=== PATIENT | female | born 1955 | race Caucasian/White ===

== ENCOUNTER 2019-03-14 14:22 | Emergency (ER) | payer MEDICAID, OTHER, SELFPAY ==
[~2019-03-14] VITALS: Ht 162.6 cm; Wt 63.6 kg
[~2019-03-14 14:22] MED LIST: ALBU18HF2 INH; ASPI-1265 PO; CARV3.12 PO; COR3.125T PO; EST1T PO; FURO-150 PO; FURO20TA4 PO; GUAI600T45 PO; LACT1CAP26 PO; LEVO500T89 PO; LISI-604 PO; LISI10TA4 PO; METH4TAB81 PO; NIFE30TA95 PO; PHEN100C4 PO; PROG200C11 PO; THY60T PO; UMEC1DIS IH
[2019-03-14 15:13] LABS: BASOPHILS % (AUTO) 0.8 % (0-1); EOSINOPHILS # (AUTO) 0.3 X10'3 (0-0.9); EOSINOPHILS % (AUTO) 4.6 % (0-6); HEMOGLOBIN 15.1 g/dl (12.0-16.0); LYMPHOCYTES # (AUTO) 1.2 X10'3 (1.1-4.8); LYMPHOCYTES % (AUTO) 21.8 % (21-51); MEAN CORPUSCULAR HEMOGLOBIN 31.6 PG (27.0-31.0); MEAN CORPUSCULAR HGB CONC 34.4 g/dL (33.0-36.5); MEAN CORPUSCULAR VOLUME 91.9 FL (78-98); MONOCYTES # (AUTO) 0.6 X10'3 (0-0.9); MONOCYTES % (AUTO) 9.7 % (2-12); NEUTROPHILS # (AUTO) 3.6 X10'3 (1.8-7.7); NEUTROPHILS % (AUTO) 63.1 % (42-75); PLATELET COUNT 235 X10'3 (140-440); RED BLOOD COUNT 4.79 X10'6 (4.20-5.60); RED CELL DISTRIBUTION WIDTH 13.8 % (11.5-14.5); WHITE BLOOD COUNT 5.7 X10'3 (4.5-11.0)
[2019-03-14] MEDS ORDERED: albuterol 2.5 MG/3 ML nebule NEB ONE (15:25)
[2019-03-14] MEDS ORDERED: ipratropium/albuterol 3ml nebule NEB ONE (15:25)
[2019-03-14 15:26] LABS: ALANINE AMINOTRANSFERASE 42 U/L (12-78); ALBUMIN 3.9 G/DL (3.4-5.0); ALKALINE PHOSPHATASE 131 IU/L (46-116); ANION GAP 10 (8-16); ASPARTATE AMINO TRANSFERASE 27 U/L (10-37); BILIRUBIN,TOTAL 0.3 MG/DL (0.1-1.0); BLOOD UREA NITROGEN 11 MG/DL (7-18); BUN/CREATININE RATIO 14.3 (6.6-38.0); CALCIUM 9.3 MG/DL (8.5-10.1); CHLORIDE 104 MMOL/L (99-107); CREATININE 0.77 MG/DL (0.40-0.90); GLUCOSE 118 MG/DL (70-104); POTASSIUM 3.4 MMOL/L (3.5-5.1); SODIUM 140 MMOL/L (135-145); TOTAL CARBON DIOXIDE 25.7 MMOL/L (24-32); TOTAL PROTEIN 7.7 G/DL (6.4-8.2); eGFR 76 ML/MIN
[2019-03-14 15:28] LABS: PARTIAL THROMBOPLASTIN TIME 27 SECONDS (22-32)
[2019-03-14] MEDS ORDERED: predniSONE 20 mg tablet PO ONE (15:50)
[2019-03-14] MEDS ORDERED: PRED20TA PO (15:55)
[2019-03-14] MEDS ORDERED: ALBU18HF2 INH (15:55)
--- NOTE | 2019-03-14 16:30 | NUR ---
PT FEELING BETTER AFTER BREATING TREATMENTS.
[2019-03-14 16:38] VITALS: BP 17/76
== END 2019-03-14 16:41 | disposition home or self-care (01) ==
LOC: ER 14:22
DX: J44.1 Chronic obstructive pulmonary disease with (acute) exacerbation (principal); I11.0 Hypertensive heart disease with heart failure; I50.9 Heart failure, unspecified; Z79.82 Long term (current) use of aspirin; Z79.899 Other long term (current) drug therapy; Z87.891 Personal history of nicotine dependence; Z91.030 Bee allergy status; Z86.14 Personal history of Methicillin resistant Staphylococcus aureus infection; Z86.69 Personal history of other diseases of the nervous system and sense organs
CPT/HCPCS: 36415; 71045; 80053; 83880; 84484; 85025; 85610; 85730; 93005; 94640; 94760; 99284; J7512

== ENCOUNTER 2021-02-22 20:18 | Emergency (ER) | payer MEDICARE, BC ==
[~2021-02-22] VITALS: Ht 162.6 cm; Wt 125.0 kg
[~2021-02-22 20:18] MED LIST changes: -LISI-604 PO; +LISI-790 PO; +LISI10TA27 PO; -LISI10TA4 PO
[2021-02-22] MEDS ORDERED: MELO-102 PO (20:45)
[2021-02-22] MEDS ORDERED: NIFE90TA44 PO (20:45)
[2021-02-22] MEDS ORDERED: HYDR-3972 PO (20:45)
[2021-02-22] MEDS ORDERED: LEVO125T8 PO (20:45)
[2021-02-22] MEDS ORDERED: FLUT1BLS4 (20:45)
[2021-02-22 21:10] LABS: BASOPHILS % (AUTO) 0.3 % (0-1); EOSINOPHILS # (AUTO) 0.2 X10'3 (0-0.9); HEMATOCRIT 41.4 % (35.0-45.0); HEMOGLOBIN 13.9 g/dl (12.0-16.0); LYMPHOCYTES # (AUTO) 1.2 X10'3 (1.1-4.8); LYMPHOCYTES % (AUTO) 24.2 % (21-51); MEAN CORPUSCULAR HEMOGLOBIN 30.8 PG (27.0-31.0); MEAN CORPUSCULAR HGB CONC 33.7 g/dL (33.0-36.5); MEAN CORPUSCULAR VOLUME 91.5 FL (78-98); MEAN PLATELET VOLUME 8.3 FL (7.4-10.4); MONOCYTES # (AUTO) 0.5 X10'3 (0-0.9); MONOCYTES % (AUTO) 10.6 % (2-12); NEUTROPHILS # (AUTO) 3.1 X10'3 (1.8-7.7); NEUTROPHILS % (AUTO) 60.9 % (42-75); PLATELET COUNT 199 X10'3 (140-440); RED BLOOD COUNT 4.52 X10'6 (4.20-5.60); WHITE BLOOD COUNT 5.1 X10'3 (4.5-11.0)
[2021-02-22 21:19] LABS: ALANINE AMINOTRANSFERASE 35 U/L (12-78); ALBUMIN 3.6 G/DL (3.4-5.0); ALBUMIN/GLOBULIN RATIO 0.8 (1.1-1.5); ALKALINE PHOSPHATASE 186 IU/L (46-116); ANION GAP 11 (8-16); ASPARTATE AMINO TRANSFERASE 26 U/L (10-37); BILIRUBIN,TOTAL 0.2 MG/DL (0.1-1.0); BLOOD UREA NITROGEN 25 MG/DL (7-18); BUN/CREATININE RATIO 34.7 (6.6-38.0); CALCIUM 8.7 MG/DL (8.5-10.1); CHLORIDE 104 MMOL/L (99-107); CREATININE 0.72 MG/DL (0.40-0.90); GLUCOSE 99 MG/DL (70-104); POTASSIUM 3.3 MMOL/L (3.5-5.1); SODIUM 140 MMOL/L (135-145); TOTAL CARBON DIOXIDE 24.7 MMOL/L (24-32); eGFR 81 ML/MIN
[2021-02-22] MEDS ORDERED: ipratropium/albuterol 3ml nebule NEB ONE (22:00)
[2021-02-22] MEDS ORDERED: predniSONE 20 mg tablet PO ONE (22:00)
[2021-02-22] MEDS ORDERED: potassium Cl 20 mEq SR tablet PO ONE (22:05)
[2021-02-22] MEDS ORDERED: PRED20TA PO (22:12)
[2021-02-22] MEDS ORDERED: AZIT-72 PO (22:12)
[2021-02-22 22:49] VITALS: BP 220/99
== END 2021-02-22 22:54 | disposition home or self-care (01) ==
LOC: ER 20:19
DX: J44.9 Chronic obstructive pulmonary disease, unspecified (principal); F17.200 Nicotine dependence, unspecified, uncomplicated; G40.909 Epilepsy, unspecified, not intractable, without status epilepticus; I11.0 Hypertensive heart disease with heart failure; I50.9 Heart failure, unspecified; Z86.14 Personal history of Methicillin resistant Staphylococcus aureus infection; Z79.2 Long term (current) use of antibiotics; Z79.899 Other long term (current) drug therapy; Z87.01 Personal history of pneumonia (recurrent); Z79.82 Long term (current) use of aspirin; Z91.030 Bee allergy status
CPT/HCPCS: 36415; 71045; 80053; 83880; 84484; 85025; 93005; 94640; 99285; J7512; 94760

== ENCOUNTER 2022-01-11 21:43 | Emergency (ER) | payer MEDICARE ==
[~2022-01-11] VITALS: Ht 162.6 cm; Wt 54.5 kg
[~2022-01-11 21:43] MED LIST changes: -CARV3.12 PO; -EST1T PO; +FLUT1BLS4; -FURO-150 PO; -GUAI600T45 PO; +HYDR-3972 PO; -LACT1CAP26 PO; +LEVO125T8 PO; -LEVO500T89 PO; -LISI-790 PO; +MELO-102 PO; -METH4TAB81 PO; -NIFE30TA95 PO; +NIFE90TA44 PO; -PROG200C11 PO; -THY60T PO; -UMEC1DIS IH
[2022-01-11] MEDS ORDERED: ipratropium/albuterol 3ml nebule NEB ONE (21:45)
[2022-01-11] MEDS ORDERED: racepinephrine 11.25mg/0.5ml nebule IH ONE (21:45)
[2022-01-11] MEDS ORDERED: methylPREDNISolone sod succ 125mg/2ml vial IV ONE (21:45)
[2022-01-11] MEDS ORDERED: dexamethasone sod phosphate 10mg/ml inj IV STA (21:45)
[2022-01-11] MEDS ORDERED: diphenhydrAMINE 50 mg/ml inj ONE (21:50)
[2022-01-11] MEDS ORDERED: diphenhydrAMINE 50 mg/ml inj IV ONE (21:55)
[2022-01-11] MEDS ORDERED: famotidine/PF 10 mg/ml inj IV ONE (21:55)
[2022-01-11] MEDS ORDERED: aspirin 81mg tab.chew PO ONE (22:00)
[2022-01-11] MEDS ORDERED: epiNEPHrine 1 mg/ml inj IM STA (22:15)
[2022-01-11 22:18] LABS: BASOPHILS # (AUTO) 0.1 X10'3 (0-0.2); BASOPHILS % (AUTO) 0.9 % (0-1); EOSINOPHILS # (AUTO) 0.4 X10'3 (0-0.9); EOSINOPHILS % (AUTO) 4.8 % (0-6); HEMATOCRIT 42.8 % (35.0-45.0); HEMOGLOBIN 14.5 g/dl (12.0-16.0); LYMPHOCYTES # (AUTO) 2.3 X10'3 (1.1-4.8); LYMPHOCYTES % (AUTO) 30.7 % (21-51); MEAN CORPUSCULAR HEMOGLOBIN 30.1 PG (27.0-31.0); MEAN CORPUSCULAR HGB CONC 33.9 g/dL (33.0-36.5); MEAN CORPUSCULAR VOLUME 88.8 FL (78-98); MEAN PLATELET VOLUME 8.6 FL (7.4-10.4); MONOCYTES # (AUTO) 0.7 X10'3 (0-0.9); MONOCYTES % (AUTO) 9.5 % (2-12); NEUTROPHILS # (AUTO) 4.1 X10'3 (1.8-7.7); NEUTROPHILS % (AUTO) 54.1 % (42-75); PLATELET COUNT 273 X10'3 (140-440); RED BLOOD COUNT 4.82 X10'6 (4.20-5.60); RED CELL DISTRIBUTION WIDTH 13.5 % (11.5-14.5); WHITE BLOOD COUNT 7.5 X10'3 (4.5-11.0)
[2022-01-11 22:28] LABS: ALANINE AMINOTRANSFERASE 21 U/L (12-78); ALBUMIN 3.4 G/DL (3.4-5.0); ALBUMIN/GLOBULIN RATIO 0.9 (1.1-1.5); ALKALINE PHOSPHATASE 141 IU/L (46-116); ANION GAP 12 (8-16); ASPARTATE AMINO TRANSFERASE 19 U/L (10-37); BILIRUBIN,TOTAL 0.2 MG/DL (0.1-1.0); BLOOD UREA NITROGEN 12 MG/DL (7-18); BUN/CREATININE RATIO 16.4 (6.6-38.0); CALCIUM 8.5 MG/DL (8.5-10.1); CHLORIDE 101 MMOL/L (99-107); CREATININE 0.73 MG/DL (0.40-0.90); GLUCOSE 206 MG/DL (70-104); SODIUM 137 MMOL/L (135-145); TOTAL CARBON DIOXIDE 23.8 MMOL/L (24-32); TOTAL PROTEIN 7.4 G/DL (6.4-8.2); eGFR 80 ML/MIN
[2022-01-11 22:36] LABS: MAGNESIUM 1.9 MG/DL (1.5-2.4)
[2022-01-11] MEDS ORDERED: potassium Cl 20 mEq SR tablet PO STA (23:16)
[2022-01-12] MEDS ORDERED: DIPH25CA83 PO (03:22)
[2022-01-12] MEDS ORDERED: EPIN0.3P3 IM (03:22)
[2022-01-12] MEDS ORDERED: FAMO40TA7 PO (03:23)
[2022-01-12] MEDS ORDERED: PRED50TA PO (03:23)
[2022-01-12 03:34] VITALS: BP 193/86
== END 2022-01-12 03:38 | disposition home or self-care (01) ==
LOC: ER 21:43
DX: T78.3XXA Angioneurotic edema, initial encounter (principal); T78.2XXA Anaphylactic shock, unspecified, initial encounter; I11.0 Hypertensive heart disease with heart failure; Z86.14 Personal history of Methicillin resistant Staphylococcus aureus infection; J44.9 Chronic obstructive pulmonary disease, unspecified; Z91.030 Bee allergy status; Z79.899 Other long term (current) drug therapy
CPT/HCPCS: 36415; 71045; 80053; 83735; 83880; 84484; 85025; 93005; 94640; 96372; 96374; 96375; 99285; J0171; J1100; J1200; J2930; J3490; 94760

== ENCOUNTER 2022-11-06 20:18 | Emergency (ER) | payer MEDICARE ==
[~2022-11-06] VITALS: Ht 162.6 cm; Wt 54.0 kg
[~2022-11-06 20:18] MED LIST changes: +DIPH25CA83 PO; +EPIN0.3P3 IM; +FAMO40TA7 PO; -LEVO125T8 PO; +PRED50TA PO
[2022-11-07] MEDS ORDERED: mag hydrox/Alum hydrox/simeth 30ml oral suspension PO ONE ×2 (01:20→05:25)
[2022-11-07] MEDS ORDERED: famotidine/PF 10 mg/ml inj IV ONE (01:20)
--- NOTE | 2022-11-07 01:36 | NUR ---
Patient to CT
[2022-11-07 01:37] LABS: BASOPHILS # (AUTO) 0.1 X10'3 (0-0.2); BASOPHILS % (AUTO) 0.5 % (0-1); EOSINOPHILS # (AUTO) 0.1 X10'3 (0-0.9); EOSINOPHILS % (AUTO) 1.1 % (0-6); HEMATOCRIT 42.3 % (35.0-45.0); HEMOGLOBIN 14.7 g/dl (12.0-16.0); LYMPHOCYTES % (AUTO) 9.1 % (21-51); MEAN CORPUSCULAR HEMOGLOBIN 31.1 PG (27.0-31.0); MEAN CORPUSCULAR HGB CONC 34.8 g/dL (33.0-36.5); MEAN CORPUSCULAR VOLUME 89.4 FL (78-98); MEAN PLATELET VOLUME 7.3 FL (7.4-10.4); MONOCYTES # (AUTO) 0.9 X10'3 (0-0.9); MONOCYTES % (AUTO) 8.2 % (2-12); NEUTROPHILS # (AUTO) 8.6 X10'3 (1.8-7.7); NEUTROPHILS % (AUTO) 81.1 % (42-75); PLATELET COUNT 280 X10'3 (140-440); RED BLOOD COUNT 4.73 X10'6 (4.20-5.60); RED CELL DISTRIBUTION WIDTH 14.1 % (11.5-14.5); WHITE BLOOD COUNT 10.6 X10'3 (4.5-11.0)
[2022-11-07 01:40] LABS: CLARITY,URINE CLEAR (Clear); GLUCOSE, URINE NEGATIVE (Neg); KETONES,URINE TRACE mg/dl (Neg); LEUKOCYTE ESTERASE ,URINE NEGATIVE (Neg); NITRITES, URINE NEGATIVE (Neg); OCCULT BLOOD,URINE NEGATIVE (Neg); PROTEIN,URINE NEGATIVE (Neg); UROBILINOGEN,URINE 0.2 E.U/dL (0.2-1.0)
[2022-11-07 01:47] LABS: UA COLLECTION TYPE CLN CATCH MIDSTREAM
[2022-11-07 01:48] LABS: COLOR,URINE DARK YELLOW (Yellow)
[2022-11-07 01:49] LABS: ALANINE AMINOTRANSFERASE 21 U/L (12-78); ALBUMIN 3.2 G/DL (3.4-5.0); ALBUMIN/GLOBULIN RATIO 0.8 (1.1-1.5); ALKALINE PHOSPHATASE 164 IU/L (46-116); ANION GAP 7 (8-16); ASPARTATE AMINO TRANSFERASE 22 U/L (10-37); BILIRUBIN,TOTAL 0.4 MG/DL (0.1-1.0); BLOOD UREA NITROGEN 19 MG/DL (7-18); BUN/CREATININE RATIO 26.8 (10.0-20.0); CALCIUM 8.6 MG/DL (8.5-10.1); CHLORIDE 95 MMOL/L (99-107); CREATININE 0.71 MG/DL (0.40-0.90); GLUCOSE 152 MG/DL (70-104); LIPASE < 50 U/L (73-393); POTASSIUM 3.8 MMOL/L (3.5-5.1); SODIUM 132 MMOL/L (135-145); TOTAL CARBON DIOXIDE 29.8 MMOL/L (24-32); TOTAL PROTEIN 7.2 G/DL (6.4-8.2); eGFR 82 ML/MIN
[2022-11-07] MEDS ORDERED: iohexol 300mg/ml 100ml inj. ONE (01:53)
[2022-11-07] MEDS ORDERED: normal saline 1000ml 1,000 ML IV ONE (02:20)
[2022-11-07] MEDS ORDERED: POLY119P2 PO (05:54)
[2022-11-07] MEDS ORDERED: magnesium hydroxide 30ml (MOM) UD suspension PO ONE (05:55)
[2022-11-07 06:53] VITALS: BP 135/72
== END 2022-11-07 07:11 | disposition home or self-care (01) ==
LOC: ER 20:19
DX: K59.00 Constipation, unspecified (principal); E87.1 Hypo-osmolality and hyponatremia; I11.0 Hypertensive heart disease with heart failure; I50.9 Heart failure, unspecified; J44.9 Chronic obstructive pulmonary disease, unspecified; Z91.030 Bee allergy status; Z79.899 Other long term (current) drug therapy; Z79.82 Long term (current) use of aspirin; Z79.1 Long term (current) use of non-steroidal anti-inflammatories (NSAID); Z79.2 Long term (current) use of antibiotics
CPT/HCPCS: 36415; 74177; 80053; 81003; 83690; 84484; 85025; 93005; 96361; 96374; 99285; J3490; J7030; Q9967